=== PATIENT | male | born 1970 | race Caucasian/White ===

== ENCOUNTER 2016-03-07 08:37 | Emergency (ER) | payer SELFPAY ==
[~2016-03-07] VITALS: Ht 188 cm; Wt 158.8 kg
[2016-03-07] MEDS ORDERED: SODIUM CHLORIDE 0.9% 3,000 ML IV ONE (10:00)
[2016-03-07] MEDS ORDERED: SODIUM CHLORIDE 0.9% 1,000 ML IV ONE ×2 (10:01→17:30)
[2016-03-07 10:03] LABS: Basophils # (auto) 0 uL; Basophils % (auto) 0.3 % (0.0-2.0); Eosinophils # (auto) 0.1 uL; Eosinophils % (auto) 2.3 % (0.0-7.0); Hematocrit 42.6 % (41.0-53.0); Hemoglobin 14.1 g/dL (13.5-17.5); Lymphocytes # (auto) 0.7 uL; Mean Corpuscular Hemoglobin 29.5 pg (28.0-32.0); Mean Corpuscular Hgb Conc. 33.1 g/dL (32.0-36.0); Mean Corpuscular Volume 89.1 fL (80.0-100.0); Mean Platelet Volume 11.3 fL (7.4-10.4); Monocytes # (auto) 0.2 uL; Monocytes % (auto) 7.3 % (0.0-12.0); Neutrophils # (auto) 1.8 uL; Neutrophils % (auto) 64.1 % (37.0-80.0); Red Cell Distribution Width 13.8 % (11.6-16.0); White Blood Cell 2.8 10^3/uL (4.4-10.8)
[2016-03-07 10:26] LABS: Platelet Count (auto) 66 10^3/uL (140-450)
[2016-03-07 10:28] LABS: Albumin 3.3 g/dL (3.4-5.0); BUN/Creatinine Ratio 11.8; Calcium 8.6 mg/dL (8.5-10.1); Potassium 3.9 mmol/L (3.5-5.1); Total Protein 7.1 g/dL (6.4-8.2)
[2016-03-07 10:30] LABS: Cholesterol 174 mg/dL (<200); HDL Cholesterol 31 mg/dL (40-59); LDL Cholesterol 107 mg/dL (<100); Triglycerides 225 mg/dL (<150)
[2016-03-07] MEDS ORDERED: InsuLIN REG 1unit/0.01ml Soln (100units/ml) IV ONE ×4 (11:15→17:30)
[2016-03-07 11:19] LABS: Urine Bilirubin Negative (Negative); Urine Blood Negative /uL (Negative); Urine Color Yellow (Yellow); Urine Ketone Negative (Negative); Urine Nitrite Negative (Negative); Urine RBC <1 /hpf (0 - 3); Urine Urobilinogen Normal (Negative)
[2016-03-07 11:20] LABS: Urine Glucose 4+ mg/dL (Normal)
[2016-03-07 18:34] VITALS: BP 119/65
== END 2016-03-07 18:29 | disposition home or self-care (01) ==
LOC: ER 08:41
DX: E11.65 Type 2 diabetes mellitus with hyperglycemia (principal); E66.01 Morbid (severe) obesity due to excess calories; Z68.39 Body mass index [BMI] 39.0-39.9, adult; R79.89 Other specified abnormal findings of blood chemistry; E46 Unspecified protein-calorie malnutrition; D69.6 Thrombocytopenia, unspecified
CPT/HCPCS: 36415; 71020; 80053; 80061; 81001; 82962; 83735; 84443; 85025; 93005; 94761; 96361; 96374; 96376; 99285; J1815; J7030

== ENCOUNTER 2018-11-19 07:30 | Emergency (ER) | payer MEDICAID, OTHER ==
[~2018-11-19] VITALS: Ht 185.4 cm; Wt 160.1 kg
[2018-11-19 07:36] VITALS: BP 114/86
== END 2018-11-19 08:48 | disposition home or self-care (01) ==
LOC: ER 07:30
DX: S83.91XA Sprain of unspecified site of right knee, initial encounter (principal); X50.1XXA Overexertion from prolonged static or awkward postures, initial encounter; Y93.89 Activity, other specified; Y99.8 Other external cause status; Y92.89 Other specified places as the place of occurrence of the external cause
CPT/HCPCS: 73562

== ENCOUNTER 2019-01-17 06:53 | Inpatient (IN) | payer SELFPAY ==
[~2019-01-17] VITALS: Ht 188 cm; Wt 153.2 kg
[2019-01-17 07:43] LABS: Urine Bacteria NONE SEEN /hpf (None Seen); Urine Blood 3+ /uL (Negative); Urine Specific Gravity 1.018 (1.001-1.035); Urine WBC 546 /hpf (0 - 3); Urine WBC Clumps PRESENT /hpf (None Seen)
[2019-01-17 08:08] LABS: Albumin 3.4 g/dL (3.4-5.0); BUN/Creatinine Ratio 15.7; Potassium 4.2 mmol/L (3.5-5.1)
[2019-01-17 08:11] LABS: Bilirubin, Total 0.9 mg/dL (0.2-1.0)
[2019-01-17] MEDS ORDERED: cefTRIAXone 1GM/50ML D5W 50 ML IV ONE (08:15)
[2019-01-17 08:36] LABS: Basophils # (auto) 0 uL; Eosinophils # (auto) 0.1 uL; Mean Corpuscular Hemoglobin 30.9 pg (28.0-32.0); Mean Corpuscular Hgb Conc. 34.7 g/dL (32.0-36.0); Monocytes # (auto) 0.5 uL; Neutrophils # (auto) 4.5 uL
[2019-01-17 08:38] LABS: Basophils % (auto) 0.2 % (0.0-2.0); Eosinophils % (auto) 1.1 % (0.0-7.0); Hematocrit 41.2 % (41.0-53.0); Hemoglobin 14.3 g/dL (13.5-17.5); Lymphocytes # (auto) 0.7 uL; Lymphocytes % (auto) 12.3 % (10.0-50.0); Mean Corpuscular Volume 89.2 fL (80.0-100.0); Monocytes % (auto) 9.2 % (0.0-12.0); Neutrophils % (auto) 77.2 % (37.0-80.0); Platelet Count (auto) 58 10^3/uL (140-450); Red Blood Cells 4.62 10^6/uL (4.5-5.90); Red Cell Distribution Width 13.5 % (11.8-14.3); White Blood Cell 5.8 10^3/uL (4.4-10.8)
[2019-01-17 08:47] LABS: INR 1.12 (0.9-1.15); Partial Thromboplastin Time 28.3 sec (23.64-32.05)
[2019-01-17] MEDS ORDERED: SODIUM CHLORIDE 0.9% 1,000 ML IV ONE (09:45)
[2019-01-17] MEDS ORDERED: MORPHINE SULF INJ 2 MG/ML SYRINGE 1ML IV PRN ×2 (11:30)
[2019-01-17] MEDS ORDERED: ACETAMINOPHEN 500 MG TAB PO PRN (11:30)
[2019-01-17] MEDS ORDERED: NITROGLYCERIN 0.4 MG SL TAB SL PRN (11:30)
[2019-01-17] MEDS ORDERED: ONDANSETRON HCL 4 MG/2 ML VIAL IV PRN (11:30)
[2019-01-17] MEDS: SODIUM CHLORIDE 0.9% 1,000 ML IV SCH ×2 (11:49→18:08)
[2019-01-17] MEDS: PHENAZOPYRIDINE HCL 100 MG TAB PO SCH ×2 (11:49→18:08)
--- NOTE | 2019-01-17 16:15 | NUR ---
MS admit from ER LUIS ENRIQUE AVILA admitted to [facility] after SBAR received. Patient oriented to Shannan Christopher RN primary RN, unit, room, bed, and unit policies regarding patient care and visiting hours. Patient is alert and oriented x4. No reports of distress/SOB or pain. Bed is in the lowest position with 2x side rails up for safety. Call light is within reach. All questions and concerns addressed, patient verbalized understanding.
[2019-01-17 16:20] VITALS: BP 118/69
[2019-01-17 16:26] VITALS: BP 118/69
--- NOTE | 2019-01-17 19:10 | NUR ---
Opening Shift Note Assumed care of patient, awake and alert. No S/S of distress/SOB or pain. Insructed on POC and to call for assist PRN, will continue to monitor for changes Q1hr and PRN. Signed: 01/18/19 at 346 by KIMANI GALINDO SN <Co-Signature Required> Co-Signed: 01/18/19 at 346 by Dariana Vasques RN
[2019-01-17] MEDS: DOCUSATE SOD 100 MG CAP PO SCH (21:38)
[2019-01-17 22:00] VITALS: BP 115/64
[2019-01-18] MEDS: SODIUM CHLORIDE 0.9% 1,000 ML IV SCH ×3 (03:30→18:42)
[2019-01-18 05:00] VITALS: BP 114/72
[2019-01-18] MEDS: HYDROcodone-ACET 5/325MG TAB PO PRN ×2 (05:21→16:09)
[2019-01-18 07:03] LABS: Calcium 8.2 mg/dL (8.5-10.1); Potassium 4.1 mmol/L (3.5-5.1)
[2019-01-18 07:04] LABS: BUN/Creatinine Ratio 14.1
[2019-01-18 07:10] LABS: Basophils # (auto) 0 uL; Eosinophils # (auto) 0.1 uL; Hemoglobin 13.8 g/dL (13.5-17.5); Lymphocytes # (auto) 0.7 uL; Monocytes # (auto) 0.4 uL; Neutrophils # (auto) 2.7 uL; Nucleated Red Blood Cells % 0.1 %; Platelet Count (auto) 57 10^3/uL (140-450); White Blood Cell 3.9 10^3/uL (4.4-10.8)
[2019-01-18 07:18] LABS: Basophils % (auto) 0.4 % (0.0-2.0); Eosinophils % (auto) 2.1 % (0.0-7.0); Hematocrit 39.5 % (41.0-53.0); Lymphocytes % (auto) 18.5 % (10.0-50.0); Mean Corpuscular Hemoglobin 30.7 pg (28.0-32.0); Mean Corpuscular Hgb Conc. 34.9 g/dL (32.0-36.0); Monocytes % (auto) 9.3 % (0.0-12.0); Neutrophils % (auto) 69.7 % (37.0-80.0); Red Blood Cells 4.49 10^6/uL (4.5-5.90); Red Cell Distribution Width 13.5 % (11.8-14.3)
--- NOTE | 2019-01-18 07:25 | NUR ---
Opening Note Received report from night warehouse manager RN. Patient is awake, alert and oriented x4. No signs or symptoms of distress noted at this time. Patient denies pain at this time. Patient is on room air, respirations even and unlabored. Reviewed plan of care with patient, patient verbalized understanding. Bed in low and locked position, call light within reach. Will continue to monitor Q1 hour and PRN.
[2019-01-18] MEDS: cefTRIAXone 1GM/50ML D5W 50 ML IV SCH (08:51)
[2019-01-18] MEDS: PHENAZOPYRIDINE HCL 100 MG TAB PO SCH ×3 (08:51→18:18)
[2019-01-18 09:00] VITALS: BP 123/75
[2019-01-18] MEDS: DOCUSATE SOD 100 MG CAP PO SCH ×2 (11:21→21:18)
[2019-01-18] MEDS: FAMOTIDINE 20 MG TAB PO SCH (11:22)
[2019-01-18 13:00] VITALS: BP 137/72
--- NOTE | 2019-01-18 16:05 | NUR ---
Pain Patient complains of headache 8/ and is requesting pain medication. Will medicate with PRN pain medications. Patient provided with ice pack. Will continue to monitor Q1 hour and PRN.
[2019-01-18 17:00] VITALS: BP 149/76
--- NOTE | 2019-01-18 19:24 | NUR ---
Closing Note Report given to night auditor RN. No signs or symptoms of distress noted at this time.
--- NOTE | 2019-01-18 19:30 | NUR ---
Opening Shift Note Report received from day shift RN. Assumed care of patient, awake and A&O x4. No S/S of distress/SOB noted and denies pain at this time. Bed locked in the lowest position with side rails up x2 and call light left within reach. Instructed on POC and to call for assist PRN, will continue to monitor for changes Q1hr and PRN.
[2019-01-18 22:00] VITALS: BP 104/64
[2019-01-19 05:00] VITALS: BP 119/64
--- NOTE | 2019-01-19 07:45 | NUR ---
Opening Note Received report from production supervisor off shift RN. Patient is awake, alert and oriented x4. No signs or symptoms of distress noted at this time. Patient is on room air, respirations even and unlabored. Patient denies pain at this time. Reviewed plan of care with patient, patient verbalized understanding. Bed in low and locked position, call light within reach. Will continue to monitor Q1 hour and PRN.
[2019-01-19 09:00] VITALS: BP 120/74
[2019-01-19] MEDS: FAMOTIDINE 20 MG TAB PO SCH (09:05)
[2019-01-19] MEDS: DOCUSATE SOD 100 MG CAP PO SCH (09:05)
[2019-01-19] MEDS: PHENAZOPYRIDINE HCL 100 MG TAB PO SCH ×3 (09:05→18:00)
[2019-01-19] MEDS: cefTRIAXone 1GM/50ML D5W 50 ML IV SCH (09:06)
[2019-01-19 13:00] VITALS: BP 124/78
--- NOTE | 2019-01-19 16:40 | NUR ---
Patient Rounds Patient laying in bed in semi Iyer's position. Patient states he had "one small bowel movement," patient described it as "flat" stating it was neither "watery or hard." Patient reports no pain at this time. No signs of distress noted, respirations are even and unlabored, will continue to monitor. Signed: 01/19/19 at 1652 by KIMANI MCDERMOTT <Co-Signature Required> Co-Signed: 01/19/19 at 1652 by CAITLIN LEYVA RN RN
[2019-01-19 17:01] VITALS: BP 113/66
[2019-01-19 18:20] VITALS: BP 113/66
--- NOTE | 2019-01-19 18:55 | NUR ---
IV DISCONTINUED IV REMOVED, CATHETER INTACT. PRESSURE DRESSING APPLIED. PATIENT TOLERATED WELL. Signed: 01/19/191855 by KIMANI MCDERMOTT <Co-Signature Required> Co-Signed: 01/19/191855 by CAITLIN LEYVA RN RN
--- NOTE | 2019-01-19 19:10 | NUR ---
Discharge Discharge instructions given as ordered. Patient does not have a primary care physician. Patient provided with education for urgent care and [facility]. All questions and concerns addressed. Patient verbalized understanding. Medication reconciliation form completed and copy given to patient. New prescription given to patient. Patient refused wheelchair. Patient ambulated to private vehicle with all personal belongings. No signs or symptoms of distress noted at this time.
[2019-01-20 10:15] LABS: Hepatitis A Ab IgM Negative; Hepatitis B Core IgM Negative
[2019-01-20 10:16] LABS: Hepatitis B Surface Antigen Negative (Negative); Hepatitis C Antibody Negative (Negative)
== END 2019-01-19 19:10 | disposition home or self-care (01) | DRG 872 ==
LOC: ER 06:53 → OVERFLOW 06:54 → WEST WING 15:44
PROVIDERS: ADMIT Nurse Practitioner Acute Care; ATTEND Internal Medicine Nephrology
DX: A41.51 Sepsis due to Escherichia coli [E. coli] (principal); K76.6 Portal hypertension; Z68.41 Body mass index [BMI] 40.0-44.9, adult; N30.01 Acute cystitis with hematuria; E66.9 Obesity, unspecified; D69.6 Thrombocytopenia, unspecified; E83.51 Hypocalcemia; K57.30 Diverticulosis of large intestine without perforation or abscess without bleeding; K74.60 Unspecified cirrhosis of liver; R16.1 Splenomegaly, not elsewhere classified; E11.9 Type 2 diabetes mellitus without complications; K76.0 Fatty (change of) liver, not elsewhere classified; Z79.84 Long term (current) use of oral hypoglycemic drugs
CPT/HCPCS: 36415; 74176; 80048; 80053; 80074; 81001; 83036; 85025; 85610; 85730; 87086; 87088; 87186; 96361; 96365; G0378; J0696